=== PATIENT | female | born 1960 | race Caucasian/White ===

== ENCOUNTER 2019-03-15 22:48 | Inpatient (IN) | payer OTHER ==
--- NOTE | 2019-03-15 23:41 | XR ---
EXAM: XR Left Hand Complete, 3 or More Views CLINICAL HISTORY: : Pain/ cat bite TECHNIQUE: Frontal, lateral and oblique views of the left hand. COMPARISON: No relevant prior studies available. FINDINGS: Bones/joints: Is fracture. Degenerative changes of the base of the first carpometacarpal joint. No acute fracture. No dislocation. Soft tissues: Unremarkable. No radiopaque foreign body. No evidence for gas in the soft tissues. IMPRESSION: No evidence for radiopaque foreign body no evidence for gas in the soft tissues. Degenerative changes first carpometacarpal joint
[2019-03-15 23:45] LABS: Basophils % (A) 0 %; Eosinophils # (A) 0.1 k/uL (0-0.7); Eosinophils % (A) 1 %; HCT 43.1 % (34.0-46.0); HGB 14.4 gm/dL (11.4-16.0); Lymphocytes # (A) 1.5 k/uL (1.0-4.8); Lymphocytes % (A) 10 %; MCH 29.5 pg (25.0-35.0); MCHC 33.4 g/dL (31.0-37.0); MCV 88.4 fL (80.0-100.0); Mean Platelet Volume 6.6; Monocytes # (A) 0.7 k/uL (0-1.0); Monocytes % (A) 5 %; Neutrophils # (A) 12.1 k/uL (1.3-7.7); Neutrophils % (A) 83 %; Platelet Count 223 k/uL (150-450); RBC 4.88 m/uL (3.80-5.40); WBC 14.5 k/uL (3.8-10.6)
[2019-03-15 23:54] LABS: ALT 26 U/L (9-52); AST 25 U/L (14-36); Albumin 3.6 g/dL (3.5-5.0); Alkaline Phosphatase 63 U/L (38-126); Anion Gap 5 mmol/L; Blood Urea Nitrogen 14 mg/dL (7-17); Calcium 8.7 mg/dL (8.4-10.2); Carbon Dioxide 28 mmol/L (22-30); Chloride 102 mmol/L (98-107); Glucose 108 mg/dL (74-99); Potassium 3.4 mmol/L (3.5-5.1); Sodium 135 mmol/L (137-145); Total Bilirubin 0.9 mg/dL (0.2-1.3)
[2019-03-16] MEDS ORDERED: metroNIDAZOLE-NS PMX 500 MG in SALINE 1 100ML.BAG IVPB STA (00:32)
[2019-03-16] MEDS ORDERED: SODIUM CHLORIDE 0.9% 1,000 ML IV ONE (00:33)
[2019-03-16] MEDS ORDERED: NALOXONE 0.4 MG/ML 1 ML VIAL IV PRN (00:53)
[2019-03-16] MEDS ORDERED: ACETAMINOPHEN TAB 325 MG TAB PO PRN (00:53)
[2019-03-16] MEDS ORDERED: DIPH,PERTUS(ACELL)TETVAC-LF 0.5 ML VIAL IM ONE (00:57)
[2019-03-16] MEDS ORDERED: POTASSIUM CHLORIDE ER 20 MEQ TAB.ER PO STA (00:58)
--- NOTE | 2019-03-16 01:03 | ED ---
Animal Bite HPI - General Chief Complaint: Animal Bite Stated Complaint: Cat Bite Time Seen by Provider: 03/16/19 00:31 Source: patient Mode of arrival: ambulatory Limitations: no limitations - History of Present Illness Initial Comments: 58-year-old female patient presents to the emergency department today for evaluation of swelling and redness to the left hand and arm. Patient states that last evening she was bit by her cat. She states that today she noticed some redness and swelling in her hand. States that she was at work to swelling and redness got worse. States after 6 PM she started noticing streaking up her arm. Patient states she did have low-grade temperature at 100.5F at home. States she did take ibuprofen around 4 PM. Patient reports history of hypothyroid. Denies history of diabetes. States that her cat is up-to-date on immunizations. She states that she has not received a tetanus vaccine in the last 5 years. She states she is having general body aches and malaise with this. She is also reporting nausea and dizziness. Patient denies any recent shortness breath, chest pain, abdominal pain, diarrhea, constipation, back pain, numbness, tingling, hematuria, dysuria, urinary urgency, urinary frequency, headache, visual changes, or any other complaints. - Related Data Allergies Allergy/AdvReac Type Severity Reaction Status Date / Time No Known Allergies Allergy Verified 03/15/19 23:04 Review of Systems ROS Statement: Those systems with pertinent positive or pertinent negative responses have been documented in the HPI. ROS Other: All systems not noted in ROS Statement are negative. Past Medical History Past Medical History: Hypertension, Thyroid Disorder Additional Past Medical History / Comment(s): hypothyroid, History of Any Multi-Drug Resistant Organisms: None Reported Additional Past Surgical History / Comment(s): marycruz en y gastric bypass Past Psychological History: No Psychological Hx Reported Smoking Status: Current every day smoker Past Alcohol Use History: Occasional Past Drug Use History: None Reported General Exam Limitations: no limitations General appearance: alert, in no apparent distress, other (This is a well- developed, well-nourished adult female patient in no acute distress. Vital s igns upon presentation are temperature 97.9F, pulse 95, respirations 18, blood pressure 142/85) Eye exam: Present: normal appearance, PERRL, EOMI. Absent: scleral icterus, c onjunctival injection, periorbital swelling ENT exam: Present: normal exam, normal oropharynx, mucous membranes moist Respiratory exam: Present: normal lung sounds bilaterally. Absent: respiratory distress, wheezes, rales, rhonchi, stridor Cardiovascular Exam: Present: regular rate, normal rhythm, normal heart sounds. Absent: systolic murmur, diastolic murmur, rubs, gallop, clicks GI/Abdominal exam: Present: soft, normal bowel sounds. Absent: distended, tenderness, guarding, rebound, rigid Extremities exam: Present: full ROM, tenderness (Dorsal hand tenderness), normal capillary refill, other (There is cellulitis and swelling noted over the dorsal aspect of the hand, generalized swelling to the hand is noted. There is red streaking and multiple Trevin up the arm. No lymphadenopathy. Patient does have full active and passive range of motion of the wrist. Skin is otherwise pink, warm, dry. Cap refills less than 3 seconds. Radial pulses 2+ and equal bilaterally.). Absent: normal inspection, pedal edema, joint swelling, calf tenderness Neurological exam: Present: alert, oriented X3, CN II-XII intact Psychiatric exam: Present: normal affect, normal mood Skin exam: Present: warm, dry, intact, normal color. Absent: rash Course Vital Signs 03/15/19 23:00 Temperature 97.9 F Pulse Rate 95 Respiratory 18 Rate Blood Pressure 142/85 O2 Sat by Pulse 99 Oximetry Medical Decision Making - Medical Decision Making 58-year-old female patient presents to the emergency department today for evaluation of swelling and redness to the left hand and arm after being bit by her cat last night. Physical examination did reveal cellulitis over the dorsal aspect of the hand with streaking up the arm. Patient is febrile. White blood cell count is 14.5. Given these findings patient will be admitted to the hospital for IV antibiotics. She'll be started on Rocephin and Flagyl. Pain management will be provided. Did discuss findings, results, plan with the patient, she is agreeable. - Lab Data Result diagrams: 03/15/19 23:26 03/15/19 23:26 Lab Results 03/15/19 03/15/19 03/15/19 Range/Units 23:26 23:26 23:26 WBC 14.5 H (3.8-10.6) k/uL RBC 4.88 (3.80-5.40) m/uL Hgb 14.4 (11.4-16.0) gm/dL Hct 43.1 (34.0-46.0) % MCV 88.4 (80.0-100.0) fL MCH 29.5 (25.0-35.0) pg MCHC 33.4 (31.0-37.0) g/dL RDW 14.0 (11.5-15.5) % Plt Count 223 (150-450) k/uL Neutrophils % 83 % Lymphocytes % 10 % Monocytes % 5 % Eosinophils % 1 % Basophils % 0 % Neutrophils # 12.1 H (1.3-7.7) k/uL Lymphocytes # 1.5 (1.0-4.8) k/uL Monocytes # 0.7 (0-1.0) k/uL Eosinophils # 0.1 (0-0.7) k/uL Basophils # 0.0 (0-0.2) k/uL Sodium 135 L (137-145) mmol/L Potassium 3.4 L (3.5-5.1) mmol/L Chloride 102 (98-107) mmol/L Carbon Dioxide 28 (22-30) mmol/L Anion Gap 5 mmol/L BUN 14 (7-17) mg/dL Creatinine 0.76 (0.52-1.04) mg/dL Est GFR (CKD-EPI)AfAm >90 (>60 ml/min/1.73 sqM) Est GFR (CKD-EPI)NonAf 86 (>60 ml/min/1.73 sqM) Glucose 108 H (74-99) mg/dL Plasma Lactic Acid Ivan 0.9 (0.7-2.0) mmol/L Calcium 8.7 (8.4-10.2) mg/dL Total Bilirubin 0.9 (0.2-1.3) mg/dL AST 25 (14-36) U/L ALT 26 (9-52) U/L Alkaline Phosphatase 63 (38-126) U/L Total Protein 6.0 L (6.3-8.2) g/dL Albumin 3.6 (3.5-5.0) g/dL - Radiology Data Radiology results: report reviewed, image reviewed 3 views of the left hand are obtained. Report was reviewed in its entirety. Impression by Dr. Boudreaux shows no evidence for radiopaque foreign body. No evidence for gas in the soft tissues. Degenerative changes first carpometacarpal joint. Disposition Clinical Impression: Cat bite, Cellulitis Disposition: ADMITTED IP TO THIS HOSP Condition: Serious Instructions (If sedation given, give patient instructions): Animal Bite (ED) Referrals: Octaviano Alejandro DO [Primary Care Provider] - 1-2 days Decision to Admit Reason: Admit from EC Decision Date: 03/16/19 Decision Time: 01:03
[2019-03-16] MEDS: KETOROLAC 30 MG/ML 1 ML VIAL IVP PRN ×4 (01:30→21:11)
[2019-03-16] MEDS: SODIUM CHLORIDE 0.9% 1,000 ML IV SCH ×2 (02:40→17:38)
[2019-03-16 03:47] VITALS: BMI 26.9
[2019-03-16] MEDS: metroNIDAZOLE-NS PMX 500 MG in SALINE 1 100ML.BAG IVPB SCH ×2 (10:00→17:38)
[2019-03-16] MEDS: DULoxetine HCL 60 MG CAPSULE.DR PO SCH (11:24)
[2019-03-16] MEDS: MULTIVITAMINS, THERA 1 EACH TAB PO SCH (11:24)
[2019-03-16] MEDS: LEVOTHYROXINE 50 MCG TAB PO SCH (11:24)
[2019-03-16] MEDS: METOPROLOL TARTRATE 25 MG TAB PO SCH (11:24)
[2019-03-16] MEDS: HYDROcodone/APAP 5-325MG 1 EACH TAB PO PRN ×2 (12:54→22:14)
[2019-03-16] MEDS: ENOXAPARIN 40 MG/0.4 ML SYRINGE SQ SCH (22:14)
--- NOTE | 2019-03-16 22:33 | HP ---
HISTORY AND PHYSICAL DATE OF ADMISSION: March 16, 2019. DATE OF SERVICE: March 16, 2019. PRESENTING COMPLAINT: Cat bite. HISTORY OF PRESENTING COMPLAINT: This is a very pleasant 58-year-old patient of Dr. Egan whose chronic stable medical conditions include hypertension, hypothyroid, anxiety. Two days ago, the patient has a cat which is primary an indoor cat, managed to get out and was sitting up on the fence and the patient went up to bring the cat down from the fence and 2 dogs charged towards them. The cat somewhat got startled and bit the patient in the hand. Patient says the cat has been with her for about 2-1/2 years and is a rescue cat and all the shots were developed. There is swelling in patient's left hand. There is no fever and chills. The patient has a red streak going up the left arm. The patient is started on IV ceftriaxone and Flagyl in the ER. Did receive the TDAP vaccine. Otherwise, no fever or chills. REVIEW OF SYSTEMS: CONSTITUTIONAL: None. HEENT: None. CARDIOVASCULAR: None. GASTROINTESTINAL: None. GENITOURINARY: None. MUSCULOSKELETAL: As above. DERMATOLOGICAL: As above. LYMPHATICS as above. PSYCHIATRY none. NEUROLOGICAL none. Additionally, left hand is swollen, not able to make a full wrist and the bites are there. PAST MEDICAL HISTORY: Hypertension., hypothyroid and anxiety. PAST SURGICAL HISTORY: Cholecystectomy, Delma-en-Y gastric bypass in 2007. SOCIAL HISTORY: The patient smokes about a quarter pack a day, alcohol about twice a week. . FAMILY HISTORY: Reviewed, noncontributory to presentation. HOME MEDICATIONS: 1. Multivitamin 1 tablet p.o. daily. 2. Lopressor 25 p.o. daily. 3. Synthroid 50 mcg a day. 4. Motrin 800 mg q.6h p.r.n. 5. Vitamin D2 35737 units on Sunday and Sunday. 6. Cymbalta 50 mg p.o. daily. ALLERGIES: None. PHYSICAL EXAMINATION: VITAL SIGNS: Vital signs on presentation: Temperature 97.9, pulse 95, respiration 18, blood pressure 142/85, pulse ox 99 percent on room air. GENERAL APPEARANCE: Average built, sitting up in a chair, not in distress. EYES: Pupils equal. Conjunctivae normal. HEENT: External appearance of nose and ears normal. Oral cavity normal. NECK: JVD not raised. Mass not palpable. RESPIRATORY effort normal. LUNGS are clear. CARDIOVASCULAR: First and second sounds normal. No edema. ABDOMEN: Soft, nontender. Liver and spleen not palpable. PSYCHIATRY: Alert and oriented times three. Mood and affect normal. EXTREMITIES: Left hand is swollen up to the wrist. Cat bites are noticed on the dorsum of the hand near the thumb and index finger area. Some limitation of motion of all the fingers. The patient has got a good capillary refill. Sensation is preserved. INVESTIGATION: White count 14.5, hemoglobin 14.4. Potassium 3.4, BUN and creatinine is normal. X- ray of the hand did not show any foreign body or evidence of any gas. ASSESSMENT: 1. Acute cat bite of the left hand by domestic cat who has received all of her immunizations. Normally have to look for pasteurella organism. The patient did receive a TDAP vaccine in the ER. The patient is currently on IV ceftriaxone and Flagyl. We will switch the patient over to Zosyn tomorrow morning. We will keep the patient's left arm elevated above the level of the heart. Also give NSAIDs for inflammation. Did tell the patient to exercise her hand gently. We will get an orthopedic opinion. 2. Essential hypertension. 3. Hypothyroidism. 4. Anxiety not otherwise specified. PLAN: As above. Care was discussed with the patient. Home medications are resumed. Lovenox for DVT prophylaxis. Copy to Dr. Alejandro. NAFISA / ERICN: [id number] /
[2019-03-17] MEDS: metroNIDAZOLE-NS PMX 500 MG in SALINE 1 100ML.BAG IVPB SCH ×3 (02:08→18:11)
[2019-03-17] MEDS: KETOROLAC 30 MG/ML 1 ML VIAL IVP PRN (05:33)
[2019-03-17] MEDS: SODIUM CHLORIDE 0.9% 1,000 ML IV SCH ×2 (05:38→20:16)
[2019-03-17] MEDS: LEVOTHYROXINE 50 MCG TAB PO SCH (06:30)
[2019-03-17 07:43] LABS: Basophils % (A) 0 %; Eosinophils # (A) 0.1 k/uL (0-0.7); Eosinophils % (A) 1 %; HCT 40.4 % (34.0-46.0); HGB 13.3 gm/dL (11.4-16.0); Lymphocytes % (A) 16 %; MCH 29.4 pg (25.0-35.0); MCHC 32.9 g/dL (31.0-37.0); MCV 89.4 fL (80.0-100.0); Mean Platelet Volume 6.9; Monocytes # (A) 0.4 k/uL (0-1.0); Monocytes % (A) 6 %; Neutrophils # (A) 4.7 k/uL (1.3-7.7); Neutrophils % (A) 75 %; Platelet Count 184 k/uL (150-450); RBC 4.52 m/uL (3.80-5.40); WBC 6.3 k/uL (3.8-10.6)
[2019-03-17] MEDS: ENOXAPARIN 40 MG/0.4 ML SYRINGE SQ SCH ×2 (09:35→11:50)
[2019-03-17] MEDS: MULTIVITAMINS, THERA 1 EACH TAB PO SCH (09:35)
[2019-03-17] MEDS: METOPROLOL TARTRATE 25 MG TAB PO SCH (09:35)
[2019-03-17] MEDS: DULoxetine HCL 60 MG CAPSULE.DR PO SCH (09:35)
[2019-03-17] MEDS: NAPROXEN 250 MG TAB PO SCH ×3 (10:14→20:10)
--- NOTE | 2019-03-17 17:19 | P.CNOR ---
History of Present Illness - HPI Consult date: 03/17/19 History of present illness: This patient is a 58- year old female with a past medical history of hypothyroidism, hypertension that presented to the [facility] ED on 03/16/19 for evaluation of her left arm. The patient states her cat bit her hand on 03/15/19, she was attempting to carry the cat off of her fence in the backyard, when the cat became agitated because two dogs were in the backyard as well. She states she began to notice erythema, warmth, and streaking up the left arm, as well as constitutional symptoms including fevers, body aches, malaise, and dizziness. Therefore, patient presented to the ED for evaluation. She received a TDAP vaccine and was started on IV antibiotics. The patient was admitted to internal medicine with a consult placed to orthopedics. At the time of my examination, the patient states her left hand and arm are feeling much better than they did yesterday. She states her pain is well- controlled currently. She states she feels like she is improving, she ate a full breakfast this morning. She denies fevers, chills, nausea, vomiting, malaise or dizziness today. Past Medical History Past Medical History: Hypertension, Thyroid Disorder Additional Past Medical History / Comment(s): hypothyroid, History of Any Multi-Drug Resistant Organisms: None Reported Past Surgical History: Cholecystectomy Additional Past Surgical History / Comment(s): marycruz en y gastric bypass 2007 Past Anesthesia/Blood Transfusion Reactions: No Reported Reaction Past Psychological History: No Psychological Hx Reported Smoking Status: Current every day smoker Past Alcohol Use History: Occasional Past Drug Use History: None Reported - Past Family History Mother History Unknown: Yes Medications and Allergies Home Medications Medication Instructions Recorded Confirmed Type DULoxetine HCL [Cymbalta] 60 mg PO DAILY 03/16/19 03/16/19 History Ergocalciferol (Vitamin D2) 50,000 unit PO SUWE 03/16/19 03/16/19 History [Vitamin D2] Ibuprofen [Motrin Ib] 800 mg PO Q6H PRN 03/16/19 03/16/19 History Levothyroxine Sodium [Synthroid] 50 mcg PO DAILY 03/16/19 03/16/19 History Metoprolol Tartrate [Lopressor] 25 mg PO DAILY 03/16/19 03/16/19 History Multivitamins, Thera [Multivitamin 1 tab PO DAILY 03/16/19 03/16/19 History (formulary)] Allergies Allergy/AdvReac Type Severity Reaction Status Date / Time No Known Allergies Allergy Verified 03/16/19 08:17 Physical Examination On examination, the patient is sitting up in the chair in no apparent distress. The patient is alert and orientated x3. Her breathing appears non-labored. On inspection of the left hand and forearm, there is diffuse swelling and erythema that extends to the mid-forearm. This area is warm to the touch and mildly tender to palpation. There is a puncture wound present on the dorsal hand, between the 2nd and 3rd metacarpals, no active drainage or bleeding. This area produces the maximum about of tenderness on palpation, although there is no fluctuance or signs of abscess formation. There is no pain with PROM of the elbow, wrist, or fingers. Neurovascular is intact of the left upper extremity. Dorsalis pedis pulse palpable. Sensation is intact to light touch in the distribution of the median, ulnar, radial nerves. Results Hand x-ray left 03/15/19: No acute bony abnormalities. - Labs Labs: Microbiology - Last 24 Hours (Table) 03/15/19 23:26 Blood Culture - Preliminary Blood No Growth after 24 hours H & H 03/15/19 03/17/19 Range/Units 23:26 06:42 Hgb 14.4 13.3 (11.4-16.0) gm/dL Hct 43.1 40.4 (34.0-46.0) % Result Diagrams: 03/17/19 06:42 03/15/19 23:26 Assessment and Plan Assessment: Left upper extremity cellulitis status-post cat bite of the left hand Plan: - There is no surgical intervention planned at this time. - Recommended ice and elevation of the left upper extremity. - We will continue to follow this patient closely and monitor her response to IV antibiotics. If her condition appears to worsen, we will obtain an MRI and reconsider surgical intervention at that time. Patient discussed with Dr. Boo.
[2019-03-17 20:10] VITALS: RESP 16
[2019-03-18] MEDS: metroNIDAZOLE-NS PMX 500 MG in SALINE 1 100ML.BAG IVPB SCH ×2 (01:56→10:01)
[2019-03-18] MEDS: HYDROcodone/APAP 5-325MG 1 EACH TAB PO PRN (02:02)
[2019-03-18] MEDS: LEVOTHYROXINE 50 MCG TAB PO SCH (06:24)
--- NOTE | 2019-03-18 06:38 | PN ---
PROGRESS NOTE DATE OF SERVICE: 03/17/2019 PRESENTING COMPLAINT: Cat bite. INTERVAL HISTORY: The patient presented with cat bite of left hand. Is on IV Augmentin, anti- inflammatory. Pain and swelling is coming down. She is able to make a better . No fever. No chills. REVIEW OF SYSTEMS: Done for constitutional, cardiovascular, GI, pulmonary; relevant findings as above. CURRENT MEDICATIONS: Current medications are reviewed that include IV ceftriaxone and Flagyl. PHYSICAL EXAMINATION: On examination, afebrile, pulse 60, respirations 16, blood pressure 144/89, pulse ox 98% on room air. GENERAL APPEARANCE: Sitting up, comfortable. EYES: Pupils equal. Conjunctivae normal. NECK: JVD not raised. Mass not palpable. RESPIRATORY: Effort normal. LUNGS: Are clear. CARDIOVASCULAR: First and second sounds are normal. No edema. ABDOMEN: Soft, nontender. Liver and spleen not palpable. EXTREMITIES: Left hand swelling, redness, tenderness. Movement is much improved. The swelling has greatly gone down. INVESTIGATIONS: White count 6.3. Cultures remain negative. ASSESSMENT: 1. Acute left hand cat bite with significant pain swelling on presentation now doing much better. Responded to current treatment. 2. Essential hypertension. 3. Hypothyroidism. 4. Anxiety, not otherwise specified. PLAN: Care was discussed with the patient. Give another 24 hours of IV antibiotic and patient hopefully can be discharged tomorrow. SOPHIEL / IJN: [id number] /
[2019-03-18] MEDS: ENOXAPARIN 40 MG/0.4 ML SYRINGE SQ SCH (08:18)
[2019-03-18] MEDS: DULoxetine HCL 60 MG CAPSULE.DR PO SCH (08:19)
[2019-03-18] MEDS: METOPROLOL TARTRATE 25 MG TAB PO SCH (08:19)
[2019-03-18] MEDS: NAPROXEN 250 MG TAB PO SCH (08:19)
[2019-03-18] MEDS: MULTIVITAMINS, THERA 1 EACH TAB PO SCH (08:19)
[2019-03-18 08:56] VITALS: BP 135/86; PULSE 76; TEMP 98.5
--- NOTE | 2019-03-18 19:06 | P.PN ---
Progress Note - Text Progress Note Date: 03/18/19 Patient was seen and examined bedside this morning, 03/18/19. She states she felt overall as if her symptoms were continuing to improve. She states she believes the swelling of her left hand had decreased. She continues to have an appetite and is tolerating her diet well. She denies nausea, vomiting, malaise, fevers or chills. On examination of her left hand and forearm, there is improving swelling and erythema that extends to the mid-forearm. This area is warm to the touch and mildly tender to palpation. There is a puncture wound present on the dorsal hand, between the 2nd and 3rd metacarpals, no active drainage or bleeding. There appears to be an area of mild fluctuance near the puncture wound. Neurovascular is intact of the left upper extremity. Sensation is intact to light touch in the distribution of the median, ulnar, radial nerves. Plan: Non-operative treatment is recommended at this time. I discussed with the patient that we could attempt to perform a bedside I&D of the hand this afternoon, although per nursing, Dr. Woodard drained a small area of the hand bedside and Dr. Woodard recommended discharge at that time. Patient discussed with Dr. Boo.
--- NOTE | 2019-03-20 12:35 | DS ---
DISCHARGE SUMMARY DATE OF ADMISSION: 03/16/2019 DATE OF DISCHARGE: 03/18/2019 FINAL DIAGNOSES: 1. Acute cellulitis of the left hand following a cat bite. 2. Essential hypertension. 3. Hypothyroidism. 4. Anxiety, not otherwise specified. HOSPITAL COURSE: This patient who has a domestic cat with all her shorts in place who had actually gone outside was on a fence. She was trying to get the cat down when two dogs charged. In the process, the cat bit her. The patient's hand was painful and swollen. Patient did get a immunization shot in the ER. Was treated with IV ceftriaxone and Flagyl, switched over to Augmentin. I also drained a small amount of pus. Clinically, she was doing much better with no fever. Overall, hand was greatly improved. Care was discussed the patient. Questions were answered. The patient may return to work the following Sunday. On examination, afebrile, pulse 76, respirations 16, blood pressure 135/86. Blood cultures were negative. Left hand swelling greatly improved. CONSULTATION: Dr. Boo from [facility]. DISCHARGE MEDICATIONS: 1. Cymbalta 60 mg p.o. daily. 2. Vitamin D2, 50,000 units on Sunday and Sunday. 3. Synthroid 50 mcg a day. 4. Lopressor 25 mg p.o. daily. 5. Multivitamin one tablet p.o. daily. 6. Augmentin 875 one tablet q.12, fourteen tablets. 7. Naproxen 250 mg p.o. t.i.d., 15 tablets. Follow up with Dr. Alejandro in 3 days. Patient to return to work on 03/24/2019. Discussion and discharge planning more than 35 minutes. MMODL / IJN: [id number] /
== END 2019-03-18 13:04 | disposition home or self-care (01) | DRG 603 ==
LOC: EC 22:48 → 6PED 03-16 00:51
PROVIDERS: ADMIT Hospitalist; ATTEND Hospitalist
DX: L03.114 Cellulitis of left upper limb (principal); E03.9 Hypothyroidism, unspecified; F17.210 Nicotine dependence, cigarettes, uncomplicated; F41.9 Anxiety disorder, unspecified; I10 Essential (primary) hypertension; S61.452A Open bite of left hand, initial encounter; Z79.890 Hormone replacement therapy; Z79.899 Other long term (current) drug therapy; Z98.84 Bariatric surgery status; Z90.49 Acquired absence of other specified parts of digestive tract; W55.01XA Bitten by cat, initial encounter
CPT/HCPCS: 36415; 80053; 83605; 85025; 87040; 90471; 90715; 96361; 96365; 96375; 99284

== ENCOUNTER 2020-06-22 02:32 | Emergency (ER) | payer OTHER ==
[2020-06-22 02:42] VITALS: TEMP 97.6
--- NOTE | 2020-06-22 03:02 | XR ---
EXAMINATION TYPE: XR chest 1V portable DATE OF EXAM: 06/22/2020 COMPARISON: NONE HISTORY: Trauma. Pain. TECHNIQUE: FINDINGS: Heart and mediastinum are normal. Lungs are clear. Diaphragm is normal. Bony thorax appears normal. There is no sign of pneumothorax. IMPRESSION: No cardiopulmonary disease.
--- NOTE | 2020-06-22 03:03 | XR ---
EXAMINATION TYPE: XR pelvis AP view DATE OF EXAM: 06/22/2020 COMPARISON: NONE HISTORY: Pain TECHNIQUE: Single view FINDINGS: Pelvic ring is intact. Proximal femurs and hip joints are intact. Sacroiliac joints appear normal. IMPRESSION: Negative exam. No fracture.
--- NOTE | 2020-06-22 03:10 | CT ---
EXAMINATION TYPE: CT brain baltaine wo con DATE OF EXAM: 06/22/2020 COMPARISON: None HISTORY: Fall CT DLP: 1391.40 mGycm Automated exposure control for dose reduction was used. Ventricles have normal size. There is no mass effect nor midline shift. There is no sign of intracran ial hemorrhage. Calvarium is intact. There is right parietal scalp hematoma. Skull base is intact. There is normal aeration of the mastoid sinuses. Occipital bone is intact. Cervical vertebra have fairly normal spacing and alignment. There is anterior spurring from C4 to C7. Facet joints are intact. Lung apices are clear. IMPRESSION: Mild spondylotic changes in the lower cervical spine. No fracture. Negative CT scan of the brain. Right parietal scalp hematoma.
--- NOTE | 2020-06-22 03:16 | ED ---
Fall HPI - General Chief Complaint: Fall Stated Complaint: Fall Time Seen by Provider: 06/22/20 02:33 Source: patient, EMS Mode of arrival: EMS - History of Present Illness Initial Comments: Geeta is a pleasant 59-year-old female who presents the ER today after a fall down stairs in her home. 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 Patient is uncertain if she had any loss of consciousness. She complains of pain in her right hand and is noted to have blood in her hair but was not aware that she had a laceration. Patient reports her tetanus was updated in 2017. - Related Data Home Medications Medication Instructions Recorded Confirmed DULoxetine HCL [Cymbalta] 60 mg PO DAILY 03/16/19 03/16/19 Ergocalciferol (Vitamin D2) 50,000 unit PO SUWE 03/16/19 03/16/19 [Vitamin D2] Levothyroxine Sodium [Synthroid] 50 mcg PO DAILY 03/16/19 03/16/19 Metoprolol Tartrate [Lopressor] 25 mg PO DAILY 03/16/19 03/16/19 Multivitamins, Thera [Multivitamin 1 tab PO DAILY 03/16/19 03/16/19 (formulary)] Previous Rx's Medication Instructions Recorded Amoxicillin/Potassium Clav 1 tab PO Q12HR #14 tab 03/18/19 [Augmentin 875-125 Tablet] Naproxen [Naprosyn] 250 mg PO TID #15 tab 03/18/19 Allergies Allergy/AdvReac Type Severity Reaction Status Date / Time No Known Allergies Allergy Verified 03/16/19 08:17 Review of Systems ROS Statement: Those systems with pertinent positive or pertinent negative responses have been documented in the HPI. ROS Other: All systems not noted in ROS Statement are negative. Past Medical History Past Medical History: Hypertension, Thyroid Disorder Additional Past Medical History / Comment(s): hypothyroid, History of Any Multi-Drug Resistant Organisms: None Reported Past Surgical History: Cholecystectomy Additional Past Surgical History / Comment(s): marycruz en y gastric bypass 2007 Past Anesthesia/Blood Transfusion Reactions: No Reported Reaction Past Psychological History: No Psychological Hx Reported Past Alcohol Use History: Occasional Past Drug Use History: None Reported - Past Family History Mother History Unknown: Yes General Exam - General Exam Comments Initial Comments: Physical Exam GENERAL: Patient is well-developed and well-nourished. Patient is nontoxic and well- hydrated and is in no distress. HENT: Normocephalic, Atraumatic. TMs normal bilaterally no hemotympanum No davis signs, no raccoon eyes EYES: PERRL, EOMI PULMONARY: Unlabored respirations. No audible rales rhonchi or wheezing was noted. CARDIOVASCULAR: There is a regular rate and rhythm without any murmurs gallops or rubs. ABDOMEN: Soft and nontender with normal bowel sounds. SKIN: Skin is clear with no lesions or rashes and otherwise unremarkable. : Deferred NEUROLOGIC: Patient is alert and oriented x3. Moving all extremities spontaneously MUSCULOSKELETAL: Normal extremities with adequate strength and full range of motion. No lower extremity swelling or edema. No calf tenderness. PSYCHIATRIC: Normal psychiatric evaluation. Limitations: no limitations Course Vital Signs 06/22/20 06/22/20 02:33 03:42 Temperature 97.6 F Pulse Rate 93 77 Respiratory 20 18 Rate Blood Pressure 150/111 135/97 O2 Sat by Pulse 99 96 Oximetry Procedures - Laceration Laceration #1 Consent Obtained: verbal consent Indication: laceration Site: scalp Size (cm): 1 Description: linear Depth: simple, single layer Anesthetic Used: lidocaine 1% Anesthesia Technique: local infiltration Pre-repair: wound explored Type of Sutures: vicryl Size of Sutures: 4-0 Number of Sutures: 2 Technique: simple, interrupted Patient Tolerated Procedure: well Medical Decision Making - Medical Decision Making The patient was seen and evaluated history is obtained from patient and EMS Intoxicated female with a fall down a full flight of stairs Trauma workup initiated Labs reveal elevated alcohol level no other significant abnormalities were noted Computed tomography scan of the brain and C-spine reveal no acute findings aside from a hematoma of the scalp Computed tomography scan of the chest abdomen pelvis revealed only a acute T12 compression fracture with 10% height loss Results were discussed with the patient and her daughter bedside, supportive care measures were discussed referral to Dr. Garner was discussed Small laceration on the right scalp was noted to have some persistent venous oozing despite direct pressure, 2 dissolvable sutures were placed and hemostasis was obtained Wound care was discussed with patient and daughter 21-year-old daughter bedside is comfortable with taking her mother home understanding at this point that her mother is still intoxicated, patient awake alert oriented and appropriate, stable for discharge home with daughter - Lab Data Result diagrams: 06/22/20 03:14 06/22/20 03:14 Lab Results 06/22/20 06/22/20 06/22/20 Range/Units 02:46 03:14 03:14 WBC 4.7 (3.8-10.6) k/uL RBC 4.97 (3.80-5.40) m/uL Hgb 15.2 (11.4-16.0) gm/dL Hct 46.6 H (34.0-46.0) % MCV 93.9 (80.0-100.0) fL MCH 30.7 (25.0-35.0) pg MCHC 32.7 (31.0-37.0) g/dL RDW 13.1 (11.5-15.5) % Plt Count 207 (150-450) k/uL Neutrophils % 59 % Lymphocytes % 28 % Monocytes % 7 % Eosinophils % 2 % Basophils % 1 % Neutrophils # 2.8 (1.3-7.7) k/uL Lymphocytes # 1.3 (1.0-4.8) k/uL Monocytes # 0.3 (0-1.0) k/uL Eosinophils # 0.1 (0-0.7) k/uL Basophils # 0.0 (0-0.2) k/uL PT 10.4 (9.0-12.0) sec INR 1.0 (<1.2) APTT 24.5 (22.0-30.0) sec Sodium (137-145) mmol/L Potassium (3.5-5.1) mmol/L Chloride (98-107) mmol/L Carbon Dioxide (22-30) mmol/L Anion Gap mmol/L BUN (7-17) mg/dL Creatinine (0.52-1.04) mg/dL Est GFR (CKD-EPI)AfAm (>60 ml/min/1.73 sqM) Est GFR (CKD-EPI)NonAf (>60 ml/min/1.73 sqM) Glucose (74-99) mg/dL Calcium (8.4-10.2) mg/dL Total Bilirubin (0.2-1.3) mg/dL AST (14-36) U/L ALT (4-34) U/L Alkaline Phosphatase (38-126) U/L Total Protein (6.3-8.2) g/dL Albumin (3.5-5.0) g/dL Urine Color Colorless Urine Appearance Clear (Clear) Urine pH 6.0 (5.0-8.0) Ur Specific [place] 1.010 (1.001-1.035) Urine Protein Negative (Negative) Urine Glucose (UA) Negative (Negative) Urine Ketones Negative (Negative) Urine Blood Negative (Negative) Urine Nitrite Negative (Negative) Urine Bilirubin Negative (Negative) Urine Urobilinogen <2.0 (<2.0) mg/dL Ur Leukocyte Esterase Small H (Negative) Urine RBC <1 (0-5) /hpf Urine WBC 1 (0-5) /hpf Ur Squamous Epith Cells <1 (0-4) /hpf Urine Opiates Screen Not Detected (NotDetected) Ur Oxycodone Screen Not Detected (NotDetected) Urine Methadone Screen Not Detected (NotDetected) Ur Propoxyphene Screen Not Detected (NotDetected) Ur Barbiturates Screen Not Detected (NotDetected) U Tricyclic Antidepress Not Detected (NotDetected) Ur Phencyclidine Scrn Not Detected (NotDetected) Ur Amphetamines Screen Not Detected (NotDetected) U Methamphetamines Scrn Not Detected (NotDetected) U Benzodiazepines Scrn Not Detected (NotDetected) Urine Cocaine Screen Not Detected (NotDetected) U Marijuana (THC) Screen Not Detected (NotDetected) Serum Alcohol mg/dL 06/22/20 Range/Units 03:14 WBC (3.8-10.6) k/uL RBC (3.80-5.40) m/uL Hgb (11.4-16.0) gm/dL Hct (34.0-46.0) % MCV (80.0-100.0) fL MCH (25.0-35.0) pg MCHC (31.0-37.0) g/dL RDW (11.5-15.5) % Plt Count (150-450) k/uL Neutrophils % % Lymphocytes % % Monocytes % % Eosinophils % % Basophils % % Neutrophils # (1.3-7.7) k/uL Lymphocytes # (1.0-4.8) k/uL Monocytes # (0-1.0) k/uL Eosinophils # (0-0.7) k/uL Basophils # (0-0.2) k/uL PT (9.0-12.0) sec INR (<1.2) APTT (22.0-30.0) sec Sodium 135 L (137-145) mmol/L Potassium 3.6 (3.5-5.1) mmol/L Chloride 101 (98-107) mmol/L Carbon Dioxide 23 (22-30) mmol/L Anion Gap 11 mmol/L BUN 15 (7-17) mg/dL Creatinine 0.69 (0.52-1.04) mg/dL Est GFR (CKD-EPI)AfAm >90 (>60 ml/min/1.73 sqM) Est GFR (CKD-EPI)NonAf >90 (>60 ml/min/1.73 sqM) Glucose 98 (74-99) mg/dL Calcium 8.5 (8.4-10.2) mg/dL Total Bilirubin 0.5 (0.2-1.3) mg/dL AST 36 (14-36) U/L ALT 21 (4-34) U/L Alkaline Phosphatase 60 (38-126) U/L Total Protein 6.0 L (6.3-8.2) g/dL Albumin 3.5 (3.5-5.0) g/dL Urine Color Urine Appearance (Clear) Urine pH (5.0-8.0) Ur Specific [place] (1.001-1.035) Urine Protein (Negative) Urine Glucose (UA) (Negative) Urine Ketones (Negative) Urine Blood (Negative) Urine Nitrite (Negative) Urine Bilirubin (Negative) Urine Urobilinogen (<2.0) mg/dL Ur Leukocyte Esterase (Negative) Urine RBC (0-5) /hpf Urine WBC (0-5) /hpf Ur Squamous Epith Cells (0-4) /hpf Urine Opiates Screen (NotDetected) Ur Oxycodone Screen (NotDetected) Urine Methadone Screen (NotDetected) Ur Propoxyphene Screen (NotDetected) Ur Barbiturates Screen (NotDetected) U Tricyclic Antidepress (NotDetected) Ur Phencyclidine Scrn (NotDetected) Ur Amphetamines Screen (NotDetected) U Methamphetamines Scrn (NotDetected) U Benzodiazepines Scrn (NotDetected) Urine Cocaine Screen (NotDetected) U Marijuana (THC) Screen (NotDetected) Serum Alcohol 295 H* mg/dL Disposition Clinical Impression: Fall, Alcohol intoxication, Scalp laceration Disposition: HOME SELF-CARE Additional Instructions: As we discussed your sutures are dissolvable, you do not need to have them removed You do have a new compression fracture of T12, you can follow with your PCP or an orthopedic doctor for this He'll likely have worsening muscular pain and spasm over the next 24-48 hours, I recommended you take Motrin every 6 hours as needed Turned to the ER if he develop any worsening pain or any new or concerning symptoms Is patient prescribed a controlled substance at d/c from ED?: No Referrals: Octaviano Alejandro DO [Primary Care Provider] - 1-2 days Kolby Garner DO [Doctor of Osteopathic Medicine] - 1-2 days
--- NOTE | 2020-06-22 03:17 | XR ---
EXAMINATION TYPE: XR hand complete RT DATE OF EXAM: 06/22/2020 COMPARISON: NONE HISTORY: Pain TECHNIQUE: 3 views FINDINGS: There is some mild narrowing and spurring of the first carpometacarpal joint. I see no frac ture nor dislocation. Metacarpals are intact. Carpal bones appear intact. IMPRESSION: Minor degenerative changes at the base of the thumb. No fracture seen.
--- NOTE | 2020-06-22 03:22 | CT ---
EXAMINATION TYPE: CT thor lumbar spine wo con DATE OF EXAM: 06/22/2020 COMPARISON: None HISTORY: Fall Back pain CT DLP: mGycm Automated exposure control for dose reduction was used. Images were obtained from the level of T1-S1 vertebra. Thoracic and lumbar vertebra have overall fairly normal alignment. There is 10% depression of the sup erior endplate of T12 vertebra. There is mild spurring of the endplates anteriorly in the thoracic an d lumbar spine. I see no focal bone destruction. There is no thoracic or lumbar paraspinal mass. The posterior elements are intact. There is no evidence of thoracic or lumbar spinal stenosis. Sacroiliac joints appear intact. The visualized ribs appear intact. IMPRESSION: There is a minimal acute compression fracture of T12 of 10%. Mild hypertrophic degenerative changes in the thoracic and lumbar spine.
--- NOTE | 2020-06-22 03:32 | CT ---
EXAMINATION TYPE: CT ChestAbdPelvis w con DATE OF EXAM: 06/22/2020 COMPARISON: None HISTORY: Fall Pain CT DLP: 812.40 mGycm Automated exposure control for dose reduction was used. CONTRAST: Performed with IV Contrast, patient injected with 100 mL of Isovue 300. Images were obtained from the thoracic inlet to the floor the pelvis with IV contrast Isovue 100 mL. The lungs are clear of infiltrate. There is no pleural effusion or pneumothorax. Heart size is normal . There is no pericardial effusion. There is no mediastinal adenopathy. There are no hilar masses. On ly arteries appear normal. Thoracic aorta is intact. There is no aneurysm or dissection. Liver appears normal. There are clips from cholecystectomy. Bile ducts are not dilated. Spleen appear s normal. There are clips from gastric bariatric surgery. There is no pancreatic mass. There is no adrenal mass. Kidneys show satisfactory contrast opacification. There is no hydronephrosi s. Ureters are not dilated. There is no retroperitoneal adenopathy. Bladder distends smoothly. There is no inguinal hernia. There is no free fluid in the pelvis. Uterus is anteverted. Thoracic and lumbar vertebra have normal alignment. Sacrum is intact. The hip joints are intact. Prox imal femurs appear normal. There is no mesenteric edema. There is no ascites or free air. There is no bowel obstruction. There is mild anterior wedging of T12 vertebra with 10% loss of height consistent with an acute fract ure. The sternum is intact. The ribs appear intact. Shoulder joints are intact. IMPRESSION: Acute minimal compression fracture of T12. No evidence of traumatic organ injury within the chest abdomen and pelvis.
[2020-06-22 03:43] LABS: ALT 21 U/L (4-34); AST 36 U/L (14-36); African American GFR (CKD) >90 (>60 ml/min/1.73 sqM); Albumin 3.5 g/dL (3.5-5.0); Alkaline Phosphatase 60 U/L (38-126); Anion Gap 11 mmol/L; Blood Urea Nitrogen 15 mg/dL (7-17); Calcium 8.5 mg/dL (8.4-10.2); Carbon Dioxide 23 mmol/L (22-30); Chloride 101 mmol/L (98-107); Glucose 98 mg/dL (74-99); Non-African American GFR(CKD) >90 (>60 ml/min/1.73 sqM); Potassium 3.6 mmol/L (3.5-5.1); Sodium 135 mmol/L (137-145); Total Bilirubin 0.5 mg/dL (0.2-1.3)
[2020-06-22 03:51] LABS: Basophils % (A) 1 %; Eosinophils # (A) 0.1 k/uL (0-0.7); Eosinophils % (A) 2 %; HCT 46.6 % (34.0-46.0); HGB 15.2 gm/dL (11.4-16.0); Lymphocytes # (A) 1.3 k/uL (1.0-4.8); Lymphocytes % (A) 28 %; MCH 30.7 pg (25.0-35.0); MCHC 32.7 g/dL (31.0-37.0); MCV 93.9 fL (80.0-100.0); Mean Platelet Volume 6.4; Monocytes # (A) 0.3 k/uL (0-1.0); Monocytes % (A) 7 %; Neutrophils # (A) 2.8 k/uL (1.3-7.7); Neutrophils % (A) 59 %; Partial Thromboplastin Time 24.5 sec (22.0-30.0); Platelet Count 207 k/uL (150-450); Prothrombin Time 10.4 sec (9.0-12.0); RBC 4.97 m/uL (3.80-5.40); RDW 13.1 % (11.5-15.5); WBC 4.7 k/uL (3.8-10.6)
[2020-06-22 04:14] LABS: Alcohol 295 mg/dL
[2020-06-22] MEDS ORDERED: LIDOCAINE 1% INJ 10MG/ML (20 ML MDV) SQ ONE (04:46)
[2020-06-22 04:55] LABS: Appearance,Urine Clear (Clear); Bilirubin,Urine Negative (Negative); Blood,Urine Negative (Negative); Color,Urine Colorless; Glucose,Urine (UA) Negative (Negative); Ketones,Urine Negative (Negative); Leukocyte Esterase,Urine Small (Negative); Nitrite,Urine Negative (Negative); Protein,Urine Negative (Negative); RBC,Urine <1 /hpf (0-5); Squamous Epithelial Cell,Urine <1 /hpf (0-4); Urobilinogen,Urine <2.0 mg/dL (<2.0); WBC,Urine 1 /hpf (0-5)
[2020-06-22 05:06] LABS: Amphetamine Screen,Urine Not Detected (NotDetected); Barbiturate Screen,Urine Not Detected (NotDetected); Benzodiazepines Screen,Urine Not Detected (NotDetected); Cocaine Screen,Urine Not Detected (NotDetected); Methadone Screen, Urine Not Detected (NotDetected); Opiate Screen,Urine Not Detected (NotDetected); Oxycodone Screen, Urine Not Detected (NotDetected); Phencyclidine Screen,Urine Not Detected (NotDetected); Tricyclic Antidepressant,Urine Not Detected (NotDetected); Urn Cannabinoid Scrn Not Detected (NotDetected)
[2020-06-22 06:02] VITALS: BP 106/69; PULSE 79; RESP 16
== END 2020-06-22 05:45 | disposition home or self-care (01) ==
LOC: EC 02:32
DX: F10.129 Alcohol abuse with intoxication, unspecified (principal); S01.01XA Laceration without foreign body of scalp, initial encounter; S22.089A Unspecified fracture of T11-T12 vertebra, initial encounter for closed fracture; R94.31 Abnormal electrocardiogram [ECG] [EKG]; I10 Essential (primary) hypertension; M79.641 Pain in right hand; E03.9 Hypothyroidism, unspecified; Z79.890 Hormone replacement therapy; Z79.899 Other long term (current) drug therapy; Z90.49 Acquired absence of other specified parts of digestive tract; W10.9XXA Fall (on) (from) unspecified stairs and steps, initial encounter; Z98.84 Bariatric surgery status; Y92.009 Unspecified place in unspecified non-institutional (private) residence as the place of occurrence of the external cause
CPT/HCPCS: 99285; 12001; 36415; 93005; 86900; 86901; 80053; 85025; 85610; 85730; 86850; 81001; 80306; 80320; 72170; 73130; 71045; 72128; 72125; 72131; 70450; 71260; 74177; J2001; Q9967

== ENCOUNTER → 2020-09-29 | Outpatient (CLI) | payer OTHER ==
--- NOTE | 2020-09-29 14:45 | MM ---
Reason for exam: additional evaluation requested from prior study. Last mammogram was performed 14 years and 4 months ago. History: Patient is postmenopausal and had first child at age 34. Physical Findings: Nurse did not find any significant physical abnormalities on exam. MG Diagnostic Mammo w CAD NOE Bilateral CC and MLO view(s) were taken. Prior study comparison: May 31, 2006, bilateral screening mammogram w/CAD. September 14, 2003, bilateral screening mammogram. The breast tissue is heterogeneously dense. This may lower the sensitivity of mammography. No persistent nodule right breast. Left breast demonstrated nodular density medially. Ultrasound recommended. These results were verbally communicated with the patient and result sheet given to the patient on 09/29/20. ASSESSMENT: Incomplete: need additional imaging evaluation, BI-RAD 0 RECOMMENDATION: Ultrasound of the left breast.
--- NOTE | 2020-09-29 14:47 | USB ---
Reason for exam: additional evaluation requested from abnormal screening. History: Patient is postmenopausal and had first child at age 34. US Breast LT Left complete breast ultrasound includes all four quadrants, the retroareolar region and axilla. Finding demonstrates a 1.6 x 0.6 x 1.3cm hypoechoic lesion at 8 o'clock. Area subcutaneous tissues may reflect infection. Recommend appropriate antibiotic therapy then follow up. These results were verbally communicated with the patient and result sheet given to the patient on 09/29/20. ASSESSMENT: Probably benign, BI-RAD 3 RECOMMENDATION: Ultrasound of the left breast in 1 month. (6 weeks) Manage patient on a clinical basis.
== END | disposition home or self-care (01) ==
LOC: RADMAMWWP 13:39
PROVIDERS: ATTEND Family Medicine
DX: N63.20 Unspecified lump in the left breast, unspecified quadrant (principal)
CPT/HCPCS: 77066

== ENCOUNTER 2023-01-10 16:36 | Emergency (ER) | payer OTHER ==
[2023-01-10 16:52] VITALS: TEMP 97.6
[2023-01-10] MEDS ORDERED: MORPHINE SULFATE 2 MG/ML SYRINGE IVP ONE ×2 (17:08→18:23)
[2023-01-10] MEDS ORDERED: ONDANSETRON 4 MG/2 ML VIAL IVP STA (17:08)
--- NOTE | 2023-01-10 17:11 | ED ---
General Adult HPI <Keith Fraga - Last Filed: 01/11/23 00:34> - General Source: patient, RN notes reviewed Mode of arrival: ambulatory Limitations: no limitations <Susana Valdez - Last Filed: 01/11/23 10:25> - General Chief complaint: Extremity Injury, Upper Stated complaint: left hand injury/Fall Time Seen by Provider: 01/10/23 16:53 - History of Present Illness Initial comments: C2-year-old female presents to the emergency department after a fall. She reports that she was washing dishes when she slipped on a puddle and fell onto her right wrist. She is unsure if she fell with her wrist outstretched. She is reporting worsening pain and swelling to the area. She has ice applied to the area. She denies any numbness, tingling, weakness. No injury proximal to the wrist (Susana Valdez) - Related Data Home Medications Medication Instructions Recorded Confirmed DULoxetine HCL [Cymbalta] 60 mg PO DAILY 03/16/19 01/10/23 Ergocalciferol (Vitamin D2) 50,000 unit PO SUWE 03/16/19 01/10/23 [Vitamin D2] Levothyroxine Sodium [Synthroid] 50 mcg PO DAILY 03/16/19 01/10/23 Metoprolol Tartrate [Lopressor] 25 mg PO BID 03/16/19 01/10/23 Irbesartan [Avapro] 300 mg PO DAILY 01/10/23 01/10/23 hydroCHLOROthiazide [Hydrodiuril] 25 mg PO DAILY 01/10/23 01/10/23 Previous Rx's Medication Instructions Recorded HYDROcodone/APAP 5-325MG [Gotebo 5] 1 each PO Q6HR PRN #12 tab 01/10/23 Allergies Allergy/AdvReac Type Severity Reaction Status Date / Time No Known Allergies Allergy Verified 01/10/23 21:06 Review of Systems ROS Other: All systems not noted in ROS Statement are negative. <Keith Fraga - Last Filed: 01/11/23 00:34> ROS Other: All systems not noted in ROS Statement are negative. <Susana Valdez - Last Filed: 01/11/23 10:25> ROS Statement: Those systems with pertinent positive or pertinent negative responses have been documented in the HPI. Past Medical History Past Medical History: Hypertension, Thyroid Disorder Additional Past Medical History / Comment(s): hypothyroid, History of Any Multi-Drug Resistant Organisms: None Reported Past Surgical History: Bariatric Surgery, Cholecystectomy Additional Past Surgical History / Comment(s): marycruz en y gastric bypass 2008 Past Anesthesia/Blood Transfusion Reactions: No Reported Reaction Past Psychological History: No Psychological Hx Reported Smoking Status: Current every day smoker Past Alcohol Use History: Occasional Past Drug Use History: None Reported - Past Family History Mother History Unknown: Yes <Susana Valdez - Last Filed: 01/11/23 10:25> General Exam Limitations: no limitations General appearance: alert, in no apparent distress Head exam: Present: atraumatic, normocephalic, normal inspection Eye exam: Present: normal appearance, PERRL, EOMI. Absent: scleral icterus, conjunctival injection, periorbital swelling ENT exam: Present: normal exam, mucous membranes moist Neck exam: Present: normal inspection. Absent: tenderness, meningismus, lymphadenopathy Respiratory exam: Present: normal lung sounds bilaterally. Absent: respiratory distress, wheezes, rales, rhonchi, stridor Cardiovascular Exam: Present: regular rate, normal rhythm, normal heart sounds. Absent: systolic murmur, diastolic murmur, rubs, gallop, clicks GI/Abdominal exam: Present: soft, normal bowel sounds. Absent: distended, tenderness, guarding, rebound, rigid Extremities exam: Present: normal inspection, full ROM, normal capillary refill. Absent: tenderness, pedal edema, joint swelling, calf tenderness Right Elbow exam: Present: normal inspection, full ROM Forearm Wrist exam: Present: tenderness, swelling (generalized ), deformity, other (2+ radial pulses, distal NVI ). Absent: normal inspection, full ROM Hand Wrist exam: Present: normal inspection Back exam: Present: normal inspection Neurological exam: Present: alert, oriented X3, CN II-XII intact Psychiatric exam: Present: normal affect, normal mood Skin exam: Present: warm, dry, intact, normal color. Absent: rash <Susana Valdez - Last Filed: 01/11/23 10:25> Course <Susana Valdez - Last Filed: 01/11/23 10:25> Vital Signs 01/10/23 01/10/23 01/10/23 16:48 18:53 20:10 Temperature 97.6 F Pulse Rate 88 61 66 Respiratory 22 14 Rate Blood Pressure 150/94 135/89 128/90 O2 Sat by Pulse 97 96 99 Oximetry 01/10/23 01/10/23 01/10/23 20:12 20:24 20:29 Temperature Pulse Rate 71 66 Respiratory 10 L 14 Rate Blood Pressure 146/99 139/99 O2 Sat by Pulse 99 97 99 Oximetry 01/10/23 01/10/23 20:33 21:27 Temperature Pulse Rate 70 74 Respiratory 14 16 Rate Blood Pressure 140/82 130/98 O2 Sat by Pulse 99 98 Oximetry - Reevaluation(s) Reevaluation #1: 01/10/23 18:30 attempted hematoma block and reduction without success with Dr. Quinones. (Susana Valdez) Reevaluation #2: 01/10/23 20:03 Patient moved to room 1 for monitor and for conscious sedation for attempted to reduce injury. Awaiting respiratory (Susana Valdez) Reevaluation #3: 01/10/23 21:00 patient reevaluated. Patient appears in no distress. And is agreeable to plan for discharge. (Susana Valdez) Procedures - Orthopedic Fracture Reduction Fracture #1 Consent Obtained: verbal consent Side: left Fracture Reduction Location: radius Analgesia: procedural sedation, hematoma block Technique: direct manipulation Post Reduction X-rays Demonstrate: acceptable reduction Post-Reduction Neuro Exam: intact Post-Reduction Vascular Exam: intact Splint Applied: Yes Patient Tolerated Procedure: well, no complications - Procedural Sedation *Indications: fracture/dislocation reduction *Previous Adverse Reaction to Anesthesia/Sedation?: No Reason Test Not Complete:: Age > 60 *ASA Class: II *Mallampati Airway Score: 2 Preparation: cardiac monitor technician applied, pulse oximeter, capnometry used, supplemental O2 applied, suction/airway equipment at bedside, IV secured IV Etomidate Dose (mgs): 10 Complications: none Patient Tolerated Procedure: well, no complications <Keith Fraga - Last Filed: 01/11/23 00:34> Medical Decision Making <Susana Valdez - Last Filed: 01/11/23 10:25> - Medical Decision Making Was pt. sent in by a medical professional or institution (, PA, CAREER AND TECHNOLOGY EDUCATION TEACHER, urgent care, hospital, or fci...) When possible be specific @ -[No] Did you speak to anyone other than the patient for history (EMS, parent, family, police, friend...)? What history was obtained from this source @ -[No] Did you review nursing and triage notes (agree or disagree)? Why? @ -[I reviewed and agree with nursing and triage notes] Were old charts reviewed (outside hosp., previous admission, EMS record, old E KG, old radiological studies, urgent care reports/EKG's, fci records)? Report findings @ -[No old charts were reviewed] Differential Diagnosis (chest pain, altered mental status, abdominal pain women, abdominal pain men, vaginal bleeding, weakness, fever, dyspnea, syncope, headache, dizziness, GI bleed, back pain, seizure, CVA, palpatations, mental h ealth, musculoskeletal)? @ -[not applicable] EKG interpreted by me (3pts min.). @ -[As above] X-rays interpreted by me (1pt min.). @ [Left wrist x-ray x-ray significant for distal radial fracture CT interpreted by me (1pt min.). @ -[None done] U/S interpreted by me (1pt. min.). @ -[None done] What testing was considered but not performed or refused? (CT, X-rays, U/S, labs)? Why? @ -[None] What meds were considered but not given or refused? Why? @ -[None] Did you discuss the management of the patient with other professionals (pr ofessionals i.e. , PA, CAREER AND TECHNOLOGY EDUCATION TEACHER, lab, RT, psych nurse, social worker clinical, line staker, teacher, senior commercial loan officer, protective services case worker)? Give summary @ -[No] Was smoking cessation discussed for >3mins.? @ -[No] Was critical care preformed (if so, how long)? @ -[No] Were there social determinants of health that impacted care today? How? (Homelessness, low income, unemployed, alcoholism, drug addiction, transportation, low edu. Level, literacy, decrease access to med. care, usp, rehab)? @ -[No] Was there de-escalation of care discussed even if they declined (Discuss DNR or withdrawal of care, Hospice)? DNR status @ -[No] What co-morbidities impacted this encounter? (DM, HTN, Smoking, COPD, CAD, Cancer, CVA, ARF, Chemo, Hep., AIDS, mental health diagnosis, sleep apnea, morbid obesity)? @ -[None] Was patient admitted / discharged? Hospital course, mention meds given and route, prescriptions, significant lab abnormalities, going to OR and other pertinent info. @ -Discharged. This is a 62-year-old female who presents the emergency department with chief complaint of left wrist pain. Patient had a thorough history and physical exam performed which revealed left with some with obvious deformity. There is tenderness to the wrist distal radial area. 2+ radial pulses remained intact, distal NVI. Patient was given morphine with mild symptomatic relief. joint reduction performed by Dr. Fraga. Post reduction x-ray shows displacement improvement. Return precautions were discussed. Patient was given a prescription for Gotebo. She was encouraged to follow up with Dr. Carlson's and in 1-2 days. Undiagnosed new problem with uncertain prognosis? @ -[No] Drug Therapy requiring intensive monitoring for toxicity (Heparin, Nitro, Insulin, Cardizem)? @ -[No] Were any procedures done? @ -[No] Diagnosis/symptom? @ -L wrist pain Acute, or Chronic, or Acute on Chronic? @ -acute Uncomplicated (without systemic symptoms) or Complicated (systemic symptoms)? @ -uncomplicated Side effects of treatment? @ -[No] Exacerbation, Progression, or Severe Exacerbation? @ -[No] Poses a threat to life or bodily function? How? (Chest pain, [place], [place], pneumonia, PE, COPD, DKA, ARF, appy, cholecystitis, CVA, Diverticulitis, Homicidal, Suic idal, threat to staff... and all critical care pts) @ -low likelihood (Susana Valdez) Disposition <Keith Fraga - Last Filed: 01/11/23 00:34> Is patient prescribed a controlled substance at d/c from ED?: No Time of Disposition: 21:01 <Susana Valdez - Last Filed: 01/11/23 10:25> Clinical Impression: Left wrist fracture Disposition: HOME SELF-CARE Instructions (If sedation given, give patient instructions): Wrist Injury (ED) Additional Instructions: Please return to the nearest emergency department if symptoms worsen or persist Prescriptions: HYDROcodone/APAP 5-325MG [Gotebo 5] 1 each PO Q6HR PRN #12 tab PRN Reason: Pain Referrals: Octaviano Alejandro DO [Primary Care Provider] - 1-2 days Imtiaz Lozano DO [Doctor of Osteopathic Medicine] - 1-2 days Anabelle Johnson DO [Doctor of Osteopathic Medicine] - 1-2 days
--- NOTE | 2023-01-10 17:42 | XR ---
EXAMINATION TYPE: XR wrist complete LT DATE OF EXAM: 01/10/2023 COMPARISON: NONE HISTORY: Wrist pain TECHNIQUE: 4 views FINDINGS: There is impacted comminuted transverse fracture distal radial metaphysis. No dislocation. Carpal bones are intact. There is mild anterior angulation at the fracture site there is moderately s evere osteoarthritis at the first carpometacarpal joint. IMPRESSION: Acute fracture of the distal radius with comminution and impaction. No dislocation. Soft tissue swelling.
[2023-01-10] MEDS ORDERED: LIDOCAINE 1% INJ 10MG/ML (30 ML VIAL-PF) SQ STA (17:59)
[2023-01-10] MEDS ORDERED: BUPIVACAINE (PF) 0.25% 30 ML VIAL SQ STA (18:00)
[2023-01-10] MEDS ORDERED: ETOMIDATE 2 MG/ML 10 ML VIAL IVP STA (18:52)
--- NOTE | 2023-01-10 20:44 | XR ---
EXAMINATION TYPE: XR wrist limited LT DATE OF EXAM: 01/10/2023 COMPARISON: 2 day HISTORY: Post reduction TECHNIQUE: 2 views FINDINGS: There is a transverse fracture distal radial metaphysis. There is mild anterior angulation at the fracture site. Fracture line still visible. No dislocation. IMPRESSION: There is transverse fracture distal radial metaphysis with improvement in the apposition and alignment of the fragments compared to initial exam. No complicating process.
[2023-01-10] MEDS ORDERED: ONDANSETRON 4 MG ODT STARTER PACK 2 TAB BTL PO STA (21:03)
[2023-01-10] MEDS ORDERED: ACET/COD 300 MG/30 MG STARTER PACK 6 TAB BTL PO STA (21:03)
[2023-01-10 21:31] VITALS: BP 130/98; PULSE 74; RESP 16
== END 2023-01-10 21:34 | disposition home or self-care (01) ==
LOC: EC 16:36
DX: S52.502A Unspecified fracture of the lower end of left radius, initial encounter for closed fracture (principal); I10 Essential (primary) hypertension; E03.9 Hypothyroidism, unspecified; F17.200 Nicotine dependence, unspecified, uncomplicated; Z79.890 Hormone replacement therapy; Z79.899 Other long term (current) drug therapy; W01.0XXA Fall on same level from slipping, tripping and stumbling without subsequent striking against object, initial encounter; Y93.G1 Activity, food preparation and clean up
CPT/HCPCS: 73100; 73110; 99283; 99152; 25605; 96374; 96375 ×2; 96376; 96372; J2405; J2001; J2270; S0119

== ENCOUNTER → 2023-02-07 | Outpatient (CLI) | payer OTHER ==
--- NOTE | 2023-02-08 19:52 | MM ---
Reason for Exam: Screening (asymptomatic). Last mammogram was performed 2 year(s) and 4 month(s) ago. Patient History: Menarche at age 11. First Full-Term at age 34. Late child-bearing (after 30). Postmenopausal. Risk Values: Lucila 5 year model risk: 2.2%. NCI Lifetime model risk: 8.9%. Prior Study Comparison: 09/14/2003 Bilateral Screening Mammogram, [facility]. 05/31/2006 Bilateral Screening Mammogram, [facility]. 09/29/2020 Bilateral Diagnostic Mammogram, [facility]. Tissue Density: The breast tissue is heterogeneously dense. This may lower the sensitivity of mammography. Findings: Analyzed By CAD. There is no suspicious group of microcalcifications or new suspicious mass in either breast. Overall Assessment: Negative, BI-RAD 1 Management: Screening Mammogram of both breasts in 1 year. 1. Patient should continue monthly self breast exams. 2. A clinical breast exam by your physician is recommended on an annual basis. 3. This exam should not preclude additional follow-up of suspicious palpable abnormalities. Electronically signed and approved by: Baldemar Link M.D. Radiologist
== END | disposition home or self-care (01) ==
LOC: RADMAMWWP 14:24
PROVIDERS: ATTEND Family Medicine
DX: Z12.31 Encounter for screening mammogram for malignant neoplasm of breast (principal); Z78.0 Asymptomatic menopausal state
CPT/HCPCS: 77067

== ENCOUNTER → 2024-10-21 | Outpatient (CLI) | payer MEDICARE ==
--- NOTE | 2024-10-21 08:52 | US ---
EXAMINATION TYPE: US aorta screening DATE OF EXAM: 10/21/2024 COMPARISON: CT 06/22/2020 CLINICAL INDICATION: Female, 64 years old with history of Z13.6 SCREENING FOR CARDIOVASCULAR DISEASE; Screening. Hx current smoker, hypertension. TECHNIQUE: Multiple sonographic images of the abdominal aorta are obtained with grayscale and color D oppler imaging. FINDINGS: EXAM MEASUREMENTS: Abdominal Aorta: Proximal: 2.4 x 2.5 cm. Mid: 2.4 x 2.6 cm. Distal: 1.8 x 2.3 cm Bifurcation: Right Iliac: 1.2 x 1.2 cm. Left Iliac: 1.1 x 1.0 cm. SHEET ROCK TAPER HELPER NOTES: Exam is slightly limited due to gas. Portion of mid aorta was gassed out. Mid aort a appears ectatic measuring 2.6 cm in transverse. IMPRESSION: Ectatic upper and mid abdominal aorta measuring 2.5 cm and 2.6 cm, respectively. No AAA identified. [facility], , 10/21/2024 8:50 AM
== END | disposition home or self-care (01) ==
LOC: RADUSWWP 07:08
PROVIDERS: ATTEND Family Medicine
DX: Z13.6 Encounter for screening for cardiovascular disorders (principal); I77.811 Abdominal aortic ectasia; I10 Essential (primary) hypertension; Z87.891 Personal history of nicotine dependence
CPT/HCPCS: 76706

== ENCOUNTER → 2024-10-21 | Outpatient (CLI) | payer MEDICARE ==
--- NOTE | 2024-10-21 08:18 | MM ---
Reason for Exam: Screening (asymptomatic). Last mammogram was performed 1 year(s) and 9 month(s) ago. Patient History: Menarche at age 11. First Full-Term at age 34. Late child-bearing (after 30). Postmenopausal. Patient has history of breast feeding. Risk Values: Lucila 5 year model risk: 2.3%. NCI Lifetime model risk: 8.2%. Prior Study Comparison: 05/31/2006 Bilateral Screening Mammogram, [facility]. 09/29/2020 Bilateral Diagnostic Mammogram, [facility]. 02/07/2023 Bilateral MG screening mammo w CAD, [facility]. Tissue Density: The breasts are heterogeneously dense, which may obscure small masses. Findings: Analyzed By CAD. Right breast: There is no suspicious group of microcalcifications or new suspicious mass. Left breast: There is no suspicious group of microcalcifications or new suspicious mass. Overall Assessment: Negative, BI-RAD 1 Management: Screening Mammogram of both breasts in [address] [facility] will attempt to contact patient to return for supplemental views and ultrasound if indicated. Patient should continue monthly self-breast exams. A clinical breast exam by your physician is recommended on an annual basis. This exam should not preclude additional follow-up of suspicious palpable abnormalities. Note on Lucila scores and lifetime risk: 1. A Lucila score greater than 3% is considered moderate risk. If this is the case, consider specialist referral to assess eligibility for a risk reducing agent. 2. If overall lifetime risk for the development of breast cancer is 20% or higher, the patient may qualify for future screening with alternating mammogram and breast MRI. [facility], , 10/21/2024 8:14 AM. Electronically signed and approved by: Maurisio Cordoba DO
== END | disposition home or self-care (01) ==
LOC: RADMAMWWP 07:06
PROVIDERS: ATTEND Family Medicine
DX: Z12.31 Encounter for screening mammogram for malignant neoplasm of breast (principal); Z78.0 Asymptomatic menopausal state; R92.333 Mammographic heterogeneous density, bilateral breasts
CPT/HCPCS: 77063; 77067